=== PATIENT | female | born 1930 | race Caucasian/White ===

== ENCOUNTER 2016-12-17 06:34 | Emergency (ER) | payer MEDICARE, BC ==
[~2016-12-17] VITALS: Ht 167.6 cm; Wt 49.0 kg
[~2016-12-17 06:34] MED LIST: AMLO5TAB4 PO
[2016-12-17] MEDS ORDERED: FAMOTIDINE 20MG/2ML VIAL IV STA (06:54)
[2016-12-17] MEDS ORDERED: ONDANSETRON HCL 4MG/2ML VIAL IV STA (06:54)
[2016-12-17] MEDS ORDERED: SODIUM CHLORIDE 0.9% 1,000 ML IV ONE (06:54)
[2016-12-17 07:23] LABS: INR 1.1; PROTHROMBIN TIME 11.6 sec
[2016-12-17 07:33] LABS: BASOPHILS % 0.7 % (0.0-2.0); HEMATOCRIT. 40.4 % (36.0-48.0); HEMOGLOBIN. 13.8 g/dL (12.0-16.0); LYMPHOCYTES % 33.1 % (20.0-50.0); MEAN CORPUSCULAR HEMOGLOBIN 29.3 pg (28.0-32.0); MEAN CORPUSCULAR HGB CONC 34.1 g/dL (31.0-37.0); MEAN CORPUSCULAR VOLUME 85.8 fL (81.0-99.0); MEAN PLATELET VOLUME 7.9 fl (7.4-10.4); MONOCYTES % 8.5 % (2.0-8.0); NEUTROPHILS % 56.7 % (40.0-76.0); PLATELET 195 x1000/uL (130-400); RED BLOOD CELL COUNT 4.72 mill/uL (4.2-5.4); RED CELL DISTRIBUTION WIDTH 13.8 % (11.6-14.6)
[2016-12-17 07:39] LABS: ALANINE AMINOTRANSFERASE 19 IU/L (13-61); ALBUMIN 3.9 g/dL (3.4-5.0); ANION GAP 20; CALCIUM 9.4 mg/dL (8.5-10.1); CARBON DIOXIDE 21 mEq/L (21-32); CHLORIDE 103 mEq/L (98-107); INDEX HEMOLYSI 1 (1-3); INDEX ICTERIC 1 (1-4); INDEX LIPEMIC 1 (1-3); LIPASE 230 IU/L (73-393); NT PRO B-TYPE NATRIURETIC PEP 44 pg/mL (5-125); TROPONIN I < 0.02 ng/mL (0.00-0.04); UREA NITROGEN BLOOD 11 mg/dL (7-21); eGFR > 60 mL/min (>60)
[2016-12-17 09:02] LABS: CLARITY URINE CLEAR (CLEAR); COLOR URINE YELLOW (YELLOW); GLUCOSE URINE NEGATIVE (NEGATIVE); KETONES URINE NEGATIVE (NEGATIVE); LEUKOCYTE ESTERASE URINE 3+ (NEGATIVE); NITRITE URINE POSITIVE (NEGATIVE); OCCULT BLOOD URINE NEGATIVE (NEGATIVE); PH URINE >=9.0 (4.5-8.0); PROTEIN URINE NEGATIVE (NEGATIVE); SPECIFIC GRAVITY URINE 1.011 (1.005-1.030); UROBILINOGEN URINE 0.2 E.U./dL (0.2-1.0)
[2016-12-17 12:29] VITALS: BP 132/87
[2016-12-17 12:43] LABS: BACTERIA URINE 4+
[2016-12-17 12:44] LABS: RBC URINE 0-2 /hpf (0-2); SQUAMOUS EPITHELIAL CELL URINE 1+ /lpf (RARE/1+)
== END 2016-12-17 12:33 | disposition home or self-care (01) ==
LOC: ER 06:35
DX: R11.2 Nausea with vomiting, unspecified (principal); I10 Essential (primary) hypertension; E87.6 Hypokalemia; R10.9 Unspecified abdominal pain
CPT/HCPCS: 36415; 71010; 80053; 81001; 83690; 83880; 84484; 85025; 85610; 87077; 87086; 87186; 93005; 96361; 96374; 96375; 99285; J2405; J3490; J7030